=== PATIENT | male | born 1970 | race Two or more races ===

== ENCOUNTER 2018-10-30 10:28 | Emergency (ER) | payer OTHER ==
[2018-10-30 11:09] VITALS: BP 120/84; PULSE 59; TEMP 98.3; BMI 27.4
--- NOTE | 2018-10-30 11:53 | PDOC ---
History of Present Illness - General Chief Complaint: Ear Problem Stated Complaint: LT EAR PAIN Time Seen by Provider: 10/30/18 11:43 - History of Present Illness Initial Comments: 10/30/18 11:50 48-year-old male without comorbidities presents for evaluation of left ear pain times one week. Past History - Past Medical History Allergies/Adverse Reactions: Allergies Allergy/AdvReac Type Severity Reaction Status Date / Time No Known Allergies Allergy Verified 10/30/18 11:06 Home Medications: Ambulatory Orders Ciprofloxacin HCl/Dexameth [Ciprodex Otic Suspension] 4 drop AD BID 5 Days #1 bottle 10/30/18 - Suicide/Smoking/Psychosocial Hx Smoking History: Never smoked Have you smoked in the past 12 months: No Hx Alcohol Use: No Drug/Substance Use Hx: No Substance Use Type: None Review of Systems - Review of Systems Constitutional: No: Fever HEENTM: Yes: Ear Pain *Physical Exam - Vital Signs Last Vital Signs Temp Pulse Resp BP Pulse Ox 98.3 F 59 L 18 120/84 100 10/30/18 11:06 10/30/18 11:06 10/30/18 11:06 10/30/18 11:06 10/30/18 11:06 - Physical Exam Comments: 10/30/18 11:51 HEAD: NC/AT EYES: Conjuntiva clear Ears: Right ear canal is normal and tympanic membrane is normal. Left ear canal is erythemic with purulent material in the canal and tympanic membrane is normal NOSE: No d/c MS: Full ROM in all joints without edema NEUROLOGIC: No gross sensory or motor deficits, NVID SKIN: Normal color and temperature no lesions or rashes Moderate Sedation - Procedure Monitoring Vital Signs: Procedure Monitoring Vital Signs Temperature 98.3 F 10/30/18 11:06 Pulse Rate 59 L 10/30/18 11:06 Respiratory Rate 18 10/30/18 11:06 Blood Pressure 120/84 10/30/18 11:06 O2 Sat by Pulse Oximetry (%) 100 10/30/18 11:06 Medical Decision Making - Medical Decision Making 10/30/18 11:52 We'll treat with Ciprodex for otitis externa and have patient follow-up with ENT *DC/Admit/Observation/Transfer Diagnosis at time of Disposition: Otitis externa - Discharge Dispostion Disposition: HOME Condition at time of disposition: Stable Decision to Admit order: No - Prescriptions Prescriptions: Ciprofloxacin HCl/Dexameth [Ciprodex Otic Suspension] 4 drop AD BID 5 Days #1 bottle - Referrals Referrals: Amadeo Bennett MD [Staff Physician] - - Patient Instructions Printed Discharge Instructions: Otitis Externa, DI for Otitis Externa Additional Instructions: Tylenol and Motrin as directed for pain. Please use the antibiotics as directed for the next 5 days return to the emergency room for worsening symptoms and follow-up with ear nose and throat doctor in 1-2 days for further evaluation and treatment options. Print Language: UPPER SORBIAN - Post Discharge Activity
== END 2018-10-30 12:00 | disposition home or self-care (01) ==
LOC: JERFT 10:28
DX: H60.502 Unspecified acute noninfective otitis externa, left ear (principal)
CPT/HCPCS: 99281-25

== ENCOUNTER 2019-02-05 09:29 | Emergency (ER) | payer OTHER | END 2019-02-05 10:50 | disposition home or self-care (01) | LOC: JERFT 09:29 ==

== ENCOUNTER 2023-04-04 23:37 | Emergency (ER) | payer OTHER ==
[2023-04-04 23:45] VITALS: BP 159/86; PULSE 54; RESP 18; TEMP 98.2; BMI 29.2
== END 2023-04-05 05:19 | disposition left against medical advice (07) ==
LOC: JER 23:37
DX: R07.89 Other chest pain (principal)
CPT/HCPCS: 93005; 93010; 99283-25